=== PATIENT | male | born 1990 | race Caucasian/White ===

== ENCOUNTER 2017-03-23 20:38 | Emergency (ER) | payer BC, MEDICAID ==
--- NOTE | 2017-03-23 21:11 | ERNOTE ---
Upper Extremity HPI - General Extremities Pain Location: hand: right Time Seen by Provider: 03/23/17 20:51 Source: patient Exam Limitations: no limitations - Immun/Allergies/Home Medications Immunizations: IMMUNIZATION HX Immunizations Up to Date Yes History of Influenza Vaccine No Hx Pneumococcal Vaccination No Allergies/Adverse Reactions: Allergies Allergy/AdvReac Type Severity Reaction Status Date / Time No Known Allergies Allergy Unverified 03/23/17 20:46 Home Medications: HOME MEDICATIONS Amoxicillin 500 mg PO BID 03/23/17 [Last Taken 03/23/17] Nabumetone 750 mg PO BID #20 tablet 03/23/17 [Last Taken Unknown] - History of Present Illness Narrative: Pt punched a wall yesterday. He has used ice and OTC medications but did not sleep well due to the pain Occurred: yesterday Location of Incident: home Severity: moderate Method of Injury: Reports: direct blow Modifying Factors - (Worsens): Reports: movement Associated Symptoms: Reports: loss of power (rt arm) - unable to lift with right hand Other Injuries: Reports: none Review of Systems - Review of Systems Constitutional: Present: no symptoms reported Musculoskeletal: Present: See HPI. Absent: back pain Skin: Absent: rash, lumps Neurological: Present: weakness. Absent: numbness, tingling - Patient's Past Medical History Patient History - Medical: No pertinent hx Patient History - Cardiac/Respiratory: Asthma Patient History - Cancer: No Hx of Cancer Patient History - Surgical Procedures: Ear Tubes, Orthopedic - Social History Living Situations: home Psych History: No pertinent hx Smoking Status: Current every day smoker Alcohol Use: occasionally Drug Use: marijuana - Immunizations Immunizations Up to Date: Yes Hx Pneumococcal Vaccination: No History of Influenza Vaccine: No Physical Exam - Physical Exam General Appearance: Present: wd/wn, alert, no apparent distress Head Exam: Present: normal inspection, no evidence of injury Respiratory: Present: no respiratory distress, no accessory muscle use Peripheral Pulses: N=norm/S=strong/W=weak/B=bound/A=absent: Radial (R): Normal Back Exam: Present: normal inspection Extremity Exam: Present: bony tenderness - right third metacarpal tenderness more proximal. Neurological Exam: Present: alert, oriented, normal mood/affect Skin Exam: Present: normal color, warm/dry ED Progress - Vital Signs Vital Signs: Vital Signs 03/23/17 20:43 Temperature 37.1 C Pulse Rate 78 Respiratory 17 Rate Blood Pressure 115/62 O2 Sat by Pulse 98 Oximetry - X-Ray X-Ray #1 X-Ray: hand Interpretation: Interp. by me X-ray Comments: No fracture or dislocation - Progress/Reassessment Chief Complaint: Hand Injury/Pain Departure Clinical Impression: Contusion of hand, right Qualifiers: Encounter type: initial encounter Qualified Code(s): S60.221A - Contusion of right hand, initial encounter - Departure Disposition: Home self-care Condition: Good Instructions: Contusion, [id number], Cryotherapy, [id number] Additional Instructions: Keep hand wrapped until feeling better. Elevate whenever possible. Take Prescriptions: Nabumetone 750 mg PO BID #20 tablet
[2017-03-23] MEDS ORDERED: KETOROLAC TROMETHAMINE 60 MG/2 ML VIAL IM ONE ×2 (21:36→21:41)
[2017-03-23 21:59] VITALS: BP 120/78
== END 2017-03-23 21:51 | disposition home or self-care (01) ==
LOC: ER 20:38
DX: Y92.009 Unspecified place in unspecified non-institutional (private) residence as the place of occurrence of the external cause; F17.200 Nicotine dependence, unspecified, uncomplicated; Y93.89 Activity, other specified; W22.01XA Walked into wall, initial encounter; S60.221A Contusion of right hand, initial encounter